=== PATIENT | male | born 1955 ===

== ENCOUNTER 2017-06-02 11:30 | Day surgery (SDC) | payer SELFPAY ==
[2017-06-02 11:52] VITALS: RESP 18
[2017-06-02 12:06] VITALS: BMI 25.8
[2017-06-02] MEDS ORDERED: Lidocaine 1% 20 MG/2 ML PF AMP ONE ×2 (12:51→13:50)
[2017-06-02] MEDS ORDERED: methylPREDNISolone Depo 80 mg/ml Inj ONE ×2 (12:51→13:51)
[2017-06-02] MEDS ORDERED: Bupivacaine HCl 0.5% PF (10 ml) Inj ONE (12:52)
[2017-06-02] MEDS ORDERED: Iohexol 300 10 ML ONE (12:53)
[2017-06-02] MEDS ORDERED: Propofol 10 mg/ml Inj (20 ML) ONE (13:16)
[2017-06-02] MEDS ORDERED: Midazolam 2 MG/2 ML VIAL ONE (13:17)
[2017-06-02] MEDS ORDERED: methylPREDNISolone Depo 80 mg/ml Inj IM ONE (13:29)
[2017-06-02] MEDS ORDERED: Lactated Ringer's 1,000 ML IV ONE (13:42)
[2017-06-02] MEDS: HYDROmorphone 0.5 mg/0.5 ml ISec IVP PRN ×2 (14:25→14:40)
[2017-06-02 16:23] VITALS: BP 128/78; PULSE 76; TEMP 98.2; O2SAT 99
--- NOTE | 2017-06-02 17:01 | RAD ---
PROCEDURE: Intraoperative Fluoroscopy. HISTORY: PAINMGT FINDINGS: Fluoroscopic assistance was provided for pain management procedure. Total fluoroscopic time (continuous mode) utilized during the procedure: 20.5 seconds.. Please refer to the operative report from
--- NOTE | 2017-06-02 20:08 | OP ---
DATE OF PROCEDURE: 06/02/2017 SURGEON: Dr. Day. ANESTHESIOLOGIST: Dr. Bourgeois. PREOPERATIVE DIAGNOSIS: Rectal pain. POSTOPERATIVE DIAGNOSIS: Rectal pain. PROCEDURE: Ganglion impar block under fluoroscopic guidance. COMPLICATIONS: None. ESTIMATED BLOOD LOSS: None. DESCRIPTION OF PROCEDURE: After informed consent was obtained, the patient was brought to the OR and placed on the table in a prone position. All pressure points were padded and sedation was administered by Anesthesia. The lumbosacral spine was prepped with iodine x3 and draped in normal sterile fashion. The patient had 3 ulcerations in his sacrum. These spots were carefully avoided. A 25-gauge needle with 2 mL of lidocaine 1% was used to create a skin lift. Under lateral x-ray view, a 22-gauge 3.5-inch spinal needle was used to cedeno the coccygeal-sacral ligament. There was no paresthesia during placement of the needle. After negative aspiration for heme or CSF, the anterior surface of the sacrum was delineated. After negative aspiration for heme or CSF, 0.5% lidocaine preservative free and Depo-Medrol 80 mg in the volume of 5 mL was installed. There was no paresthesia during the procedure. The patient was brought to stage III recovery room with stable vial signs and lower extremity motor and sensory intact. Vernon Day MD
== END 2017-06-02 16:30 | disposition home or self-care (01) ==
LOC: H.OPSURG 11:30
PROVIDERS: ATTEND Anesthesiology Pain Medicine
DX: K62.89 Other specified diseases of anus and rectum (principal); Z85.038 Personal history of other malignant neoplasm of large intestine; E78.5 Hyperlipidemia, unspecified; Z93.3 Colostomy status; Z92.21 Personal history of antineoplastic chemotherapy; Z92.3 Personal history of irradiation; E11.9 Type 2 diabetes mellitus without complications; I10 Essential (primary) hypertension; E55.9 Vitamin D deficiency, unspecified; N40.0 Benign prostatic hyperplasia without lower urinary tract symptoms; G62.0 Drug-induced polyneuropathy; L98.429 Non-pressure chronic ulcer of back with unspecified severity
CPT/HCPCS: 64450; 82948; J1040; J1170; J2250; J2270; J2704; J3010; J7120; Q9967

== ENCOUNTER 2017-10-27 10:34 | Day surgery (SDC) | payer SELFPAY ==
[2017-10-27] MEDS ORDERED: MethylPREDNISolone Depo 40 mg/ml Inj ONE (11:28)
[2017-10-27] MEDS ORDERED: Iohexol 300 10 ML ONE (11:28)
[2017-10-27] MEDS ORDERED: Bupivacaine HCl 0.25% PF (10 ml) Inj ONE (11:29)
[2017-10-27] MEDS ORDERED: Lidocaine 1% Inj (20ml) ONE (11:29)
[2017-10-27 11:57] VITALS: BMI 26.1
[2017-10-27] MEDS ORDERED: Lactated Ringer's 1,000 ML IV ONE (12:45)
[2017-10-27] MEDS ORDERED: Midazolam 2 MG/2 ML VIAL ONE (13:06)
[2017-10-27] MEDS ORDERED: Lactated Ringer's 1,000 ML IV SCH (14:00)
[2017-10-27 15:11] VITALS: RESP 18; O2SAT 100
[2017-10-27 17:20] VITALS: BP 142/78; PULSE 76; TEMP 97.5
--- NOTE | 2017-10-27 17:20 | RAD ---
PROCEDURE: Intraoperative Fluoroscopy. HISTORY: GANGLION IMPAR BLOCK FINDINGS: Fluoroscopic assistance was provided for ganglion block. Please refer to the operative report from [facility]. Total fluoroscopic time (continuous mode) utilized during the procedure: 25.3 seconds. Total exam DLP: (mGy): 6.63.
--- NOTE | 2017-10-27 20:47 | OP ---
PROCEDURE DATE: 10/27/2017 PREOPERATIVE DIAGNOSIS: Rectal pain. POSTOPERATIVE DIAGNOSIS: Rectal pain. PROCEDURE: Ganglion impar block under fluoroscopic guidance. SURGEON: Vernon Day MD ANESTHESIOLOGIST: Josesito Ackerman MD ESTIMATED BLOOD LOSS: None. COMPLICATIONS: None. DESCRIPTION OF PROCEDURE: After informed consent was obtained, the patient was brought to the OR and placed on the table in a prone position. All pressure points were padded and IV sedation was administered by Anesthesia. The lumbosacral spine was prepped with iodine x3 and draped in normal sterile fashion. A 2 mL of 1% lidocaine was used to create a skin wheal using 25-gauge needle. X-ray was used in the AP and lateral views to identify the sacral hiatus. Under lateral x-ray view, a 22-gauge 3.5-inch spinal needle was advanced through the third sacrococcygeal disk. There was no paresthesia during placement of the needle. After negative aspiration for heme or CSF, 2 mL of contrast dye was used to delineate the ventral surface of the coccyx. After negative aspiration for heme or CSF, 3 mL of 0.25% bupivacaine and 1 mL of 1% lidocaine and Depo-Medrol 80 mg was easily instilled. There was no paresthesia during the case. The patient was brought to stage II recovery room with bilateral lower extremity motor and sensory intact. Vernon Day MD [facility]
== END 2017-10-27 18:00 | disposition home or self-care (01) ==
LOC: H.OPSURG 10:34
PROVIDERS: ATTEND Anesthesiology Pain Medicine
DX: K62.89 Other specified diseases of anus and rectum (principal)
CPT/HCPCS: 64520; 82948; J1030; J1170; J2250; J3010; J7120; Q9967